=== PATIENT | female | born 1955 | race Caucasian/White ===

== ENCOUNTER 2019-01-11 19:15 | Emergency (ER) | payer BC, MEDICAID ==
--- NOTE | 2019-01-11 19:53 | EDM.PDOC ---
ED HPI GENERAL MEDICAL PROBLEM - General Chief Complaint: Skin Complaint Stated Complaint: SEWINIG NEEDLE IN FINGER Time Seen by Provider: 01/11/19 19:59 Source of Information: Reports: Patient - History of Present Illness INITIAL COMMENTS - FREE TEXT/NARRATIVE: 63 years old female patient presented with chief complaint of sewing needle broken and her left middle finger. No other injuries. No bleeding. Left Middle Finger-Middle Pain Score (Numeric/FACES): 5 - Related Data Allergies Allergy/AdvReac Type Severity Reaction Status Date / Time No Known Allergies Allergy Verified 01/11/19 19:56 Home Meds: Home Meds FLUoxetine HCl [Fluoxetine HCl] 50 mg PO DAILY 01/11/19 [History] Omeprazole 40 mg PO DAILY 01/11/19 [History] ED ROS GENERAL - Review of Systems Review Of Systems: ROS reveals no pertinent complaints other than HPI. ED EXAM, SKIN/RASH Exam: See Below Exam Limited By: No Limitations General Appearance: Alert, WD/WN, No Apparent Distress Nose: Normal Inspection, Normal Mucosa, No Blood Head: Atraumatic, Normocephalic Neck: Normal Inspection, Supple, Non-Tender, Full Range of Motion Respiratory/Chest: No Respiratory Distress, Lungs Clear, Normal Breath Sounds, No Accessory Muscle Use, Chest Non-Tender Cardiovascular: Normal Peripheral Pulses, Regular Rate, Rhythm, No Edema, No Gallop, No JVD, No Murmur, No Rub GI/Abdominal: Normal Bowel Sounds, Soft, Non-Tender, No Organomegaly, No Distention, No Abnormal Bruit, No Mass Extremities: Normal Inspection (Broken needle going through the nail all Z left middle finger, no bleeding. CMS intact. No deformity.), Normal Range of Motion, Non-Tender, No Pedal Edema, Normal Capillary Refill Course - Vital Signs Last Recorded V/S: Last Vital Signs Temp 35.7 C 01/11/19 19:52 Pulse 67 01/11/19 19:52 Resp 18 01/11/19 19:52 BP 124/76 01/11/19 19:52 Pulse Ox 97 01/11/19 19:52 - Orders/Labs/Meds Orders: Active Orders 24 hr Category Date Time Status Vaccines to be Administered [RC] PER UNIT ROUTINE Care 01/11/19 19:57 Active cefTRIAXone [Rocephin] Med 01/11/19 20:36 Once 1 gm IM ONETIME ONE Medication Orders Ceftriaxone Sodium (Rocephin) 1 gm IM ONETIME ONE Stop: 01/11/19 20:37 Meds: Medications Generic Name Dose Route Start Last Admin Trade Name Freq PRN Reason Stop Dose Admin Ceftriaxone Sodium 1 gm 01/11/19 20:36 Rocephin IM 01/11/19 20:37 ONETIME ONE Discontinued Medications Generic Name Dose Route Start Last Admin Trade Name Freq PRN Reason Stop Dose Admin Diphtheria/Tetanus/Acell Pertussis 0.5 ml 01/11/19 19:57 01/11/19 20:35 Adacel IM 01/11/19 19:58 0.5 ml .ONCE ONE Administration Lidocaine HCl 5 ml 01/11/19 19:58 01/11/19 20:35 Xylocaine-Mpf 1% INJECT 01/11/19 19:59 5 ml ONETIME ONE Administration - Radiology Interpretation Free Text/Narrative:: Patient was seen and examined shortly after arrival. Stable. Given a tetanus shot. X-ray reviewed. Risk and benefits of foreign body removal was discussed with the patient. Verbal consent obtained. I did digital block and the needle was extracted. Patient tolerated the procedure well. No complication. Bacitracin applied. Advised to follow up closely with her primary doctor. Tylenol or ibuprofen as needed. Come back if symptom worsen. Patient agrees with the plan. Stable for discharge. Departure - Departure Time of Disposition: 20:37 Disposition: Home, Self-Care 01 Condition: Good Clinical Impression: Foreign body finger - Discharge Information *PRESCRIPTION DRUG MONITORING PROGRAM REVIEWED*: Not Applicable *COPY OF PRESCRIPTION DRUG MONITORING REPORT IN PATIENT RICH: Not Applicable Referrals: Chavez Farr MD [Primary Care Provider] - Forms: ED Department Discharge Additional Instructions: keep wound dry and clean, daily bacitracin, close follow-up with PCP, complex symptoms worsen. Patient agrees with the plan. Stable for discharge - My Orders Last 24 Hours: My Active Orders 01/11/19 19:57 Vaccines to be Administered [RC] PER UNIT ROUTINE 01/11/19 20:36 cefTRIAXone [Rocephin] 1 gm IM ONETIME ONE - Assessment/Plan Last 24 Hours: My Active Orders 01/11/19 19:57 Vaccines to be Administered [RC] PER UNIT ROUTINE 01/11/19 20:36 cefTRIAXone [Rocephin] 1 gm IM ONETIME ONE Plan: keep wound dry and clean, daily bacitracin, close follow-up with PCP, complex symptoms worsen. Patient agrees with the plan. Stable for discharge
[2019-01-11] MEDS ORDERED: Diphtheria,Pertussis(Acell),Tetanus Vaccine 0.5 ML SDV IM ONE (19:57)
--- NOTE | 2019-01-11 20:34 | CRLCR ---
INDICATION: Foreign body COMPARISON: None available. FINDINGS: The left 3rd finger was examined with PA, lateral and oblique views for a total of three views. A needle shaped 9 x 1 millimeter metallic foreign body is imbedded in the soft tissues along the ulnar aspect of the tuft of the 3rd finger. There is no sign of an accompanying fracture of the tuft. There is no sign of fracture or dislocation. There is no sign of additional radiopaque foreign body. No significant degenerative changes are seen. IMPRESSION: 9 x 1 millimeter needle shaped metallic foreign body imbedded in the tip of the 3rd finger along the ulnar aspect of the tuft of the 3rd finger. No sign of any associated fracture of the tuft of the 3rd finger. Dictated by Thee Dallas MD @ Jan 11 2019 8:29PM Signed by Dr. Thee Dallas @ Jan 11 2019 8:33PM
[2019-01-11] MEDS ORDERED: cefTRIAXone 1 GM Vial IM ONE (20:36)
== END 2019-01-11 21:01 | disposition home or self-care (01) ==
LOC: JP.ED 19:15
DX: S60.453A Superficial foreign body of left middle finger, initial encounter (principal); Z23 Encounter for immunization; Z79.899 Other long term (current) drug therapy; W27.3XXA Contact with needle (sewing), initial encounter
CPT/HCPCS: 64450; 73140; 90471; 90715; 99283; J0696; J2001